=== PATIENT | female | born 1995 | race African-American/Black ===

== ENCOUNTER 2019-05-22 12:45 | Inpatient (IN) | payer OTHER ==
[~2019-05-22] VITALS: Ht 167.6 cm; Wt 79.8 kg
[2019-05-22 12:45] VITALS: BP 154/96
[2019-05-22] MEDS ORDERED: OXYTOCIN 30 UNIT/500 ML PREMIX 500 ML IV ONE (12:51)
[2019-05-22] MEDS ORDERED: LIDOCAINE 1% PF 30 ML VIAL. ONE (12:52)
[2019-05-22] MEDS ORDERED: 0.9 % SODIUM CHLORIDE 10 ML DISP.SYRIN. IV PRN ×2 (13:00→14:00)
[2019-05-22] MEDS ORDERED: fentaNYL PF VIAL 100 MCG/2 ML VIAL IV PRN (13:00)
[2019-05-22] MEDS ORDERED: TERBUTALINE 1 MG/ML VIAL. SQ PRN (13:00)
[2019-05-22] MEDS ORDERED: OXYTOCIN 30 UNIT/500 ML PREMIX 500 ML IV PRN ×3 (13:00→14:00)
[2019-05-22] MEDS ORDERED: LIDOCAINE 1% PF 30 ML VIAL. INJ PRN (13:00)
[2019-05-22 13:18] LABS: BASO % 0 % (0-3); EOS % 0 % (0-3); HEMATOCRIT 37.6 % (36.0-47.0); HEMOGLOBIN 13.3 g/dL (12.0-15.5); LYMPH # 2.2 x10^3/uL (1.0-4.8); LYMPH % 21 % (24-48); MEAN CORPUSCULAR HEMOGLOBIN 32 pg (25-35); MEAN CORPUSCULAR HGB CONC 35 g/dL (31-37); MEAN CORPUSCULAR VOLUME 89 fL (79-100); MONO # 0.9 x10^3/uL (0.0-1.1); MONO % 9 % (0-9); NEUT # 7.5 x10^3/uL (1.8-7.7); NEUT % 70 % (31-73); PLATELET COUNT 163 x10^3/uL (140-400); RED BLOOD COUNT 4.22 x10^6/uL (3.50-5.40); RED CELL DISTRIBUTION WIDTH 13.5 % (11.5-14.5); WHITE BLOOD COUNT 10.6 x10^3/uL (4.0-11.0)
--- NOTE | 2019-05-22 13:54 | PDOC1 ---
OB - History Hx of Present Care: Good Care Ultrasounds: Normal mid trimester US Obstetrical Complications: None Medical Complications: None Past Family/Social History * Past Medical, Surgical, Family and Obstetric Histories reviewed from chart. Rubella: Immune RPR/VDRL: Negative GBS Status: Negative HBsAG: Negative OB - Chief Complaint & HPI Date of Admission: Date of Admission: May 22, 2019 at 12:45 Chief Complaint/History : 1 Para: 0 EGA: 39 Reason for admission: active labor Admission Nurse Assessment Rev: Yes OB - Admission Exam Physical Exam HEENT: Normal Heart: Regular Rate Lungs: Clear Abdomen: Gravid, Non tender, Soft Extremities: Edema Reflexes: Normal Cervical Dilatation: 8cm Effacement: 100% Station: +1 Membranes: Ruptured Amniotic Fluid: Clear Heart Rate: Normal Accelerations: Accelerations Present Decelerations: No decelerations Contractions on Admission: < 5 Minutes Apart Intensity: Firm Text A: 39 wks IUP Active labor P: Pt. brought by EMS from [facility]. Admit for expectant delivery. TILA LA Jr, MD May 22, 2019 13:53
--- NOTE | 2019-05-22 13:56 | PDOC ---
VAGINAL DELIVERY DATE DATE: 05/22/19 TIME: 13:54 : 1 Para: 1 EGA: 39 VAGINAL DELIVERY: VTX VACCUM ASSISTED: No PLACENTA: Spontaneous 8/9 SEX: Male WEIGHT Weight [ 7 lbs. 1 oz] Nuchal Cord: Times 2 Amniotic Fluid: Clear PAIN: Natural EPISIOTOMY: No EXTENSION: Yes (2nd degree midline laceration) REPAIRED WITH 2-0 vicryl EBL 300 ml COMPLICATIONS none CONDITION pt. stable Signs of Intrauterine Infectio: None Shoulder Dystocia: No TILA LA Jr, MD May 22, 2019 13:56
[2019-05-22] MEDS ORDERED: PHENYLEPH/MINERAL OIL/PETROLAT RECTAL OINTMENT TUBE. RC PRN (14:00)
[2019-05-22] MEDS ORDERED: MAG HYDROX/ALUMINUM HYD/SIMETH 30 ML ORAL.SUSP PO PRN (14:00)
[2019-05-22] MEDS ORDERED: MAGNESIUM HYDROXIDE 2,400 MG/30 ML ORAL.SUSP. PO PRN (14:00)
[2019-05-22] MEDS ORDERED: MMR per PROTOCOL. MC PRN (14:00)
[2019-05-22] MEDS ORDERED: ACETAMINOPHEN 325 MG TABLET. PO PRN (14:00)
[2019-05-22] MEDS ORDERED: HYDROCORTISONE 1% TOPICAL OINTMENT 30GM TUBE. TP PRN (14:00)
[2019-05-22] MEDS ORDERED: diphenhydrAMINE HCL 25 MG CAPSULE PO PRN (14:00)
[2019-05-22] MEDS ORDERED: ZOLPIDEM 5 MG TABLET. PO PRN (14:00)
[2019-05-22] MEDS ORDERED: SIMETHICONE 80 MG TAB.CHEW PO PRN (14:00)
[2019-05-22] MEDS ORDERED: IBUPROFEN 400 MG TABLET. PO PRN (14:00)
[2019-05-22] MEDS ORDERED: oxyCODONE/APAP 5/325 1 TAB TABLET PO PRN (14:00)
[2019-05-22] MEDS ORDERED: BENZOCAINE 20% TOPICAL AEROSOL SPRAY 57GM CAN. TP PRN (14:00)
[2019-05-22] MEDS: IV RINGERS,LACTATED 1000ML 1,000 ML IV SCH ×2 (14:01→20:50)
[2019-05-22] MEDS: IBUPROFEN 400 MG TABLET. PO PRN (15:46)
[2019-05-22 16:40] VITALS: BP 132/71
[2019-05-22] MEDS: FERROUS SULFATE 325 MG TABLET. PO SCH (17:00)
[2019-05-22 17:28] VITALS: BP 119/80
[2019-05-22 19:30] VITALS: BP 123/68
[2019-05-22 22:00] VITALS: BP 140/78
[2019-05-23 01:30] VITALS: BP 132/81
[2019-05-23] MEDS: IBUPROFEN 400 MG TABLET. PO PRN ×2 (01:48→19:49)
[2019-05-23] MEDS: DOCUSATE SODIUM 100 MG CAPSULE. PO PRN ×2 (01:48→19:49)
[2019-05-23] MEDS: IV RINGERS,LACTATED 1000ML 1,000 ML IV SCH (04:50)
[2019-05-23 04:55] LABS: BASO % 0 % (0-3); EOS % 0 % (0-3); HEMATOCRIT 33.5 % (36.0-47.0); HEMOGLOBIN 11.6 g/dL (12.0-15.5); LYMPH # 1.9 x10^3/uL (1.0-4.8); LYMPH % 14 % (24-48); MEAN CORPUSCULAR HEMOGLOBIN 31 pg (25-35); MEAN CORPUSCULAR HGB CONC 35 g/dL (31-37); MEAN CORPUSCULAR VOLUME 91 fL (79-100); MONO # 1.2 x10^3/uL (0.0-1.1); MONO % 9 % (0-9); NEUT # 10.9 x10^3/uL (1.8-7.7); NEUT % 77 % (31-73); PLATELET COUNT 143 x10^3/uL (140-400); RED BLOOD COUNT 3.69 x10^6/uL (3.50-5.40); RED CELL DISTRIBUTION WIDTH 13.4 % (11.5-14.5); WHITE BLOOD COUNT 14.1 x10^3/uL (4.0-11.0)
[2019-05-23 04:59] VITALS: BP 116/77
[2019-05-23] MEDS: FERROUS SULFATE 325 MG TABLET. PO SCH (05:03)
[2019-05-23 11:15] VITALS: BP 121/82
--- NOTE | 2019-05-23 13:07 | PDOC ---
Provider Note Provider Note Doing well VSS uterus NTTP DC home BHANU BELL MD May 23, 2019 13:06
[2019-05-23 16:00] VITALS: BP 128/82
[2019-05-23 19:45] VITALS: BP 130/82
[2019-05-24 05:21] VITALS: BP 121/75
[2019-05-24] MEDS: IBUPROFEN 400 MG TABLET. PO PRN ×2 (05:22→17:37)
[2019-05-24 11:05] VITALS: BP 135/81
--- NOTE | 2019-05-24 13:14 | PDOC3 ---
OB DISCHARGE SUMMARY DATE OF ADMISSION: 05/22/19 DATE OF DISCHARGE: 05/24/19 REASON FOR ADMISSION: Onset of labor PROCEDURES: None INTRAPARTUM PROCEDURES: Spontanous Vag Deliv PROCEDURES: None OPERATIONS: None DISCHARGE DIAGNOSIS: Term Delivered DISCHARGE INFORMATION: Activity, Diet HOSPITAL COURSE Unremarkable CONDITION AT DISCHARGE Stable BHANU BELL MD May 24, 2019 13:14
[2019-05-24] MEDS ORDERED: NAPR-514 PO (13:18)
[2019-05-24] MEDS ORDERED: HYDR-3164 PO (13:18)
[2019-05-24 18:00] VITALS: BP 139/80
== END 2019-05-24 18:30 | disposition home or self-care (01) | DRG 807 ==
LOC: 3 SO LND 12:45 → EDBD 12:45 → 3 NORTH 18:00
PROVIDERS: ADMIT Specialist; ATTEND Specialist
PROC: 10E0XZZ Delivery of Products of Conception, External Approach (ICD-10-PCS; principal; 2019-05-22)
PROC: 0KQM0ZZ Repair Perineum Muscle, Open Approach (ICD-10-PCS; 2019-05-22)
DX: O69.81X0 Labor and delivery complicated by cord around neck, without compression, not applicable or unspecified (principal); Z37.0 Single live birth; O70.1 Second degree perineal laceration during delivery; Z3A.39 39 weeks gestation of pregnancy
CPT/HCPCS: 36415; 85025; 86592; 86850; 86900; 86901; J2590; J7120; G0378